=== PATIENT | male | born 1990 | race Two or more races ===

== ENCOUNTER 2019-01-28 10:24 | Emergency (ER) | payer OTHER ==
[2019-01-28 10:37] VITALS: BP 0/0; PULSE 76; BMI 17.9
--- NOTE | 2019-01-28 11:05 | PDOC ---
History of Present Illness - General Chief Complaint: Foreign Body (FB) Stated Complaint: FOREIGN BODY SWALLOWED Time Seen by Provider: 01/28/19 11:04 Past History - Past Medical History Allergies/Adverse Reactions: Allergies Allergy/AdvReac Type Severity Reaction Status Date / Time No Allergy Information Allergy Verified 01/28/19 10:29 Available Home Medications: Ambulatory Orders Hyoscyamine Odt [Levsin Odt -] 0.125 mg PO DAILY 01/28/19 Simethicone [Gas Relief] 80 mg GT DAILY 01/28/19 - Suicide/Smoking/Psychosocial Hx Smoking History: Never smoked Have you smoked in the past 12 months: No Information on smoking cessation initiated: No Hx Alcohol Use: No Drug/Substance Use Hx: No Substance Use Type: None *Physical Exam - Vital Signs Last Vital Signs Temp Pulse Resp BP Pulse Ox 76 18 0/0 L 01/28/19 10:32 01/28/19 10:32 01/28/19 10:32 *DC/Admit/Observation/Transfer Diagnosis at time of Disposition: Foreign body - Discharge Dispostion Disposition: HOME Condition at time of disposition: Stable Decision to Admit order: No - Referrals Referrals: Ed Rodriguez Jr [Primary Care Provider] - - Patient Instructions Printed Discharge Instructions: DI for Foreign Body, Swallowed-Adult Additional Instructions: You were seen in the ED for complaints of ingestion of cotton appearing material In the ED you were evaluated with chest x ray Your results did not show any other foreign bodies There does not appear to be an acute need for immediate hospitalization. You did not exhibit respiratory distress or nausea, vomiting. You are advised to follow up with your Primary Care Physician within 1 week. Return to the ED immediately if you experience difficulty breathing, nausea, vomiting or fever. - Post Discharge Activity
--- NOTE | 2019-01-28 12:22 | PDOC ---
Attending Attestation - Resident Resident Name: Callie Andrea - ED Attending Attestation I have performed the following: I have examined & evaluated the patient, The case was reviewed & discussed with the resident, I agree w/resident's findings & plan, Exceptions are as noted - HPI HPI: 01/28/19 12:25 Mr Arora is a 28 yo M h/o severe MR, seizure disorder resident of [place] History per aid initially at the bedside was that the patient was noted to have cotton in his mouth They are not sure what happened to said cotton and were concerned that he may have swallowed it The patient has not had any difficulty breathing, he has not been drooling, no retching Pt has been behaving at his behavioural baseline He is unable to provide any historical data - Physicial Exam PE: 01/28/19 12:27 GENERAL: Pt is awake and alert, he is in no acute distress, small for stated age , microcephaly ENT: small abrasion left ear, pinnas are enlarged, moist mucous membranes, unable to open pt mouth, no drooling NECK: Normal range of motion, supple, no nuchal rigidity LUNGS: Breath sounds equal, clear to auscultation bilaterally. No wheezes, and no crackles. HEART:Regular rate and rhythm, normal S1 and S2 without murmur, rub or gallop. ABDOMEN: Soft, nontender EXTREMITIES: Moving all extremities, no edema NEUROLOGICAL: Does not speak, moving all extremities, awake and alert, responsive to painful and verbal stimuli SKIN: No evidence of cellulitis - Medical Decision Making 01/28/19 12:30 28 yo M sent to the ER due to concern over swallowing or aspiration of foreign body Pt demonstrates no respiratory distress, no drooling or gagging Will do xray to assess for ingestion of radio-opaque foreign body 01/28/19 12:33 CXR: no obvious radioopaque foreign body, atalectasis on the right THe patient's aid with him was asked to try feeding him She states she does not do this 01/28/19 12:34 Will plan to discharge Return to the ER if pt develops difficulty breathing, shortness of breath, vomiting, inability to feed, any other concerns or complaint Pt should be sent for GI follow up *DC/Admit/Observation/Transfer Diagnosis at time of Disposition: Foreign body - Discharge Dispostion Disposition: HOME Condition at time of disposition: Stable - Referrals Referrals: Ed Rodriguez Jr [Primary Care Provider] - - Patient Instructions Printed Discharge Instructions: DI for Foreign Body, Swallowed-Adult Additional Instructions: You were seen in the ED for complaints of ingestion of cotton appearing material In the ED you were evaluated with chest x ray Your results did not show any other foreign bodies There does not appear to be an acute need for immediate hospitalization. You did not exhibit respiratory distress or nausea, vomiting. You are advised to follow up with your Primary Care Physician within 1 week. Return to the ED immediately if you experience difficulty breathing, nausea, vomiting or fever. - Post Discharge Activity
== END 2019-01-28 12:27 | disposition home or self-care (01) ==
LOC: JER 10:24
DX: T18.9XXA Foreign body of alimentary tract, part unspecified, initial encounter (principal); F79 Unspecified intellectual disabilities; G40.909 Epilepsy, unspecified, not intractable, without status epilepticus
CPT/HCPCS: 71045-TC-FY; 99281-25

== ENCOUNTER 2019-03-09 12:55 | Emergency (ER) | payer OTHER ==
--- NOTE | 2019-03-09 13:00 | PDOC ---
Rapid Medical Evaluation Time Seen by Provider: 03/09/19 12:58 Medical Evaluation: Allergies Allergy/AdvReac Type Severity Reaction Status Date / Time No Allergy Information Allergy Verified 01/28/19 10:29 Available 03/09/19 12:58 HPI: pt dislodged G-Tube PE: Combative in wheelchair ORDERS:Nothing
[2019-03-09 13:04] VITALS: BMI 19.1
[2019-03-09] MEDS ORDERED: HALOPERIDOL LACTATE 5 MG/ML ONE ×2 (14:17→14:22)
[2019-03-09] MEDS ORDERED: HALOPERIDOL LACTATE 5 MG/ML IM ONE (14:18)
[2019-03-09] MEDS ORDERED: LORazepam 2 MG/ML SDV VIAL ONE (15:05)
--- NOTE | 2019-03-09 15:36 | PDOC ---
Documentation entered by Jenniffer Haider SCRIBE, acting as scribe for Gisselle Dawson MD. Gisselle Dawson MD: This documentation has been prepared by the coreyeVitaly Aiswarya, SCRIBE, under my direction and personally reviewed by me in its entirety. I confirm that the documentation accurately reflects all work, treatment, procedures, and medical decision making performed by me. History of Present Illness - General Chief Complaint: G Tube Problem Stated Complaint: G- TUBE ISSUE Time Seen by Provider: 03/09/19 12:58 - History of Present Illness Initial Comments: 03/09/19 15:31 28 yo male h/o MR seizure at [facility], self injurious behaviors, nonverbal here for pulling out peg tube. happened earlier today. was last changed in December of this year. no n/v no f/c no other cmplaints. has had tube for very long time. pulls off frequently. no other complaints. Past History - Past Medical History Allergies/Adverse Reactions: Allergies Allergy/AdvReac Type Severity Reaction Status Date / Time Cephalosporins Allergy Verified 03/09/19 13:01 Penicillins Allergy Verified 03/09/19 13:01 Home Medications: Ambulatory Orders Hyoscyamine Odt [Levsin Odt -] 0.125 mg PO DAILY 01/28/19 Simethicone [Gas Relief] 80 mg GT DAILY 01/28/19 Cholestyramine/Aspartame [Cholestyramine Light Packet] 4 gm GT DAILY 03/09/19 Fluoxetine HCl Liquid [Prozac Oral Solution -] 20 mg GT DAILY 03/09/19 Risperidone 0.5 mg GT AM 03/09/19 Risperidone 1 mg GT HS 03/09/19 Anemia: Yes COPD: No Psychiatric Problems: Yes Seizures: Yes Other medical history: CONGENTITAL DISORDERS - Psycho Social/Smoking Cessation Hx Smoking History: Never smoked Have you smoked in the past 12 months: No Hx Alcohol Use: No Drug/Substance Use Hx: No Substance Use Type: None Review of Systems - Review of Systems Able to Perform ROS?: No *Physical Exam - Vital Signs Last Vital Signs Temp Pulse Resp BP Pulse Ox 00/00 L 03/09/19 12:58 - Physical Exam Comments: 03/09/19 15:33 awake pt rolling around hitting self in head. nonverbal. lungs clear bilat heart rrr nomrg abd soft nt g tube sight clean and dry well developed mucous tract. nontender. ext small noted congenital hand deformities. nuero nonverbal. moves all four ext. does not follow commands ( baseline) ED Treatment Course - RADIOLOGY Radiology Studies Ordered: Category Date Time Status ABDOMEN FLAT & UPRIGHT [RAD] Stat Radiology 03/09/19 15:30 Ordered - Medications Given in the ED: ED Medications Discontinued Medications Generic Name Dose Route Start Last Admin Trade Name [place]as PRN Reason Stop Dose Admin Haloperidol 2.5 mg 03/09/19 14:18 03/09/19 14:33 Haldol Injection (Fast Acting) - IM 03/09/19 14:19 2.5 mg ONCE ONE Administration Lorazepam 1 mg 03/09/19 15:09 03/09/19 15:14 Ativan Injection - IM 03/09/19 15:10 1 mg ONCE ONE Administration Medical Decision Making - Medical Decision Making Medical Decision Making: pt given haldol 2.5 im and ativan IM to allow for placement of peg tube. tolerated well. 16 fr tube placed. secured. awaiting xray for placement will dc back to [place]. 03/09/19 18:32 pt g tube replaced. then pulled it out again while in ED replaced a second time. confirmed with xray and contrast. dc t home. Discharge - Discharge Information Problems reviewed: Yes Clinical Impression/Diagnosis: PEG tube malfunction Condition: Improved Disposition: HOME - Admission No - Follow up/Referral - Patient Discharge Instructions Patient Printed Discharge Instructions: How to Care for Your PEG Tube Additional Instructions: peg tube was placed today. is confirmed on xray and can be used. please return for any concerns or problems follow up with regular doctor. - Post Discharge Activity
[2019-03-09 18:45] VITALS: BP 102/57; PULSE 66
== END 2019-03-09 18:46 | disposition home or self-care (01) ==
LOC: JER 12:55
PROC: 0DH63UZ Insertion of Feeding Device into Stomach, Percutaneous Approach (ICD-10-PCS; principal; 2019-03-09)
PROC: 3E023NZ Introduction of Analgesics, Hypnotics, Sedatives into Muscle, Percutaneous Approach (ICD-10-PCS; 2019-03-09)
PROC: 3E023GC Introduction of Other Therapeutic Substance into Muscle, Percutaneous Approach (ICD-10-PCS; 2019-03-09)
DX: Z43.1 Encounter for attention to gastrostomy (principal); F79 Unspecified intellectual disabilities; R56.9 Unspecified convulsions; Z88.0 Allergy status to penicillin; Z88.8 Allergy status to other drugs, medicaments and biological substances
CPT/HCPCS: 74018-TC-FY; 74019-TC-FY; 99282-25

== ENCOUNTER 2019-05-02 10:37 | Emergency (ER) | payer OTHER ==
[2019-05-02 10:59] VITALS: BP 101/80; PULSE 106; TEMP 97.6; BMI 35.0
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
== END 2019-05-02 11:36 | disposition home or self-care (01) ==
LOC: JERFT 10:37
DX: Z04.1 Encounter for examination and observation following transport accident (principal); V59.59XA Passenger in pick-up truck or van injured in collision with other motor vehicles in traffic accident, initial encounter; Y92.414 Local residential or business street as the place of occurrence of the external cause; Y93.89 Activity, other specified; Y99.8 Other external cause status; F79 Unspecified intellectual disabilities; G40.909 Epilepsy, unspecified, not intractable, without status epilepticus; F99 Mental disorder, not otherwise specified; D64.9 Anemia, unspecified; R47.01 Aphasia; Z88.0 Allergy status to penicillin; Z88.1 Allergy status to other antibiotic agents
CPT/HCPCS: 99281-25